=== PATIENT | male | born 1995 | race Caucasian/White ===

== ENCOUNTER 2019-03-30 09:49 | Inpatient (IN) | payer OTHER ==
--- NOTE | 2019-03-30 10:24 | BHS.RME ---
Substance Use & Tx History - Substance Use History Opiates (Heroin) Substance amount: 1-1.5 bundles Frequency of use: Daily Substance route: Inhalation (ex: sniffing or snorting) Date of Last Use: 03/30/19 Benzodiazepines Substance amount: Xanax 4 tabs of 2 mg each Frequency of use: Daily Date of Last Use: 03/29/19 Physical/Psych/Mental Status - Behavior Eye Contact: Normal - Cooperativeness Cooperativeness: Cooperative - Thinking Thought Processes: Tight - Physical Health Problems Is patient presently having any pain?: No Does patient presently have any injuries (include location): No Does patient currently have a fever: No COWS - Scale Resting Pulse: 0= [place] 80 or Below Sweatin= Beads of Sweat on Face Restless Observation: 3= Extraneous Movement Pupil Size: 2= Moderately Dilated Bone or Joint Aches: 2= Severe Diffuse Aches Runny Nose/ Eye Tearin= Runny Nose/Eyes GI Upset > 30mins: 2= Nausea/Diarrhea Tremor Observation: 2= Slight Tremor Visible Yawning Observation: 0= None Anxiety or Irritability: 2=Irritable/Anxious Goose Flesh Skin: 0=Smooth Skin COWS Score: 18
[2019-03-30 11:38] VITALS: BMI 23.6
--- NOTE | 2019-03-30 11:48 | HP ---
COWS - Scale Resting Pulse: 0= [place] 80 or Below Sweatin= Beads of Sweat on Face Restless Observation: 3= Extraneous Movement Pupil Size: 2= Moderately Dilated Bone or Joint Aches: 2= Severe Diffuse Aches Runny Nose/ Eye Tearin= Runny Nose/Eyes GI Upset > 30mins: 2= Nausea/Diarrhea Tremor Observation: 2= Slight Tremor Visible Yawning Observation: 0= None Anxiety or Irritability: 2=Irritable/Anxious Goose Flesh Skin: 0=Smooth Skin COWS Score: 18 CIWA Score - Admission Criteria OASAS Guidelines: Admission for Medically Managed Detox: Requires at least one of the followin. CIWA greater than 12 2. Seizures within the past 24 hours 3. Delirium tremens within the past 24 hours 4. Hallucinations within the past 24 hours 5. Acute intervention needed for co occurring medical disorder 6. Acute intervention needed for co occurring psychiatric disorder 7. Severe withdrawal that cannot be handled at a lower level of care (continued vomiting, continued diarrhea, abnormal vital signs) requiring intravenous medication and/or fluids 8. Admitting History and Physical - Admission Chief Complaint: Mr. Palm is a 23 yo gentleman who presents to [facility] requesting admission for opioid and benzo detox. History of Present Illness: Mr. Palm is a 23 yo gentleman who presents to [facility] requesting admission for opioid and benzo detox. [facility] detox last year, relapsed October 2018. PMH: none Psych: depression, anxiety, PTSD, no SI Surg: inguinal hernia at the age 4y Substance use hx Heroin: first use age 21y, last use yesterday, 1 bundle daily, sniff, no overdose, never on methadone Xanax: first use age 15y, last use yesterday, 8 mg total daily THC: first use age 12 y, last use few days ago, 1 blunt several days per week Nicotine: first use age 12 y, last use a couple of days ago, 5-6 cigs per use - Smoking History Smoking history: Current every day smoker Have you smoked in the past 12 months: Yes Aproximately how many cigarettes per day: 6 Admission ROS S - HPI Exam Limitations: No Limitations - Ebola screening Have you traveled outside of the country in the last 21 days: No Have you had contact with anyone from an Ebola affected area: No Have you been sick,other than usual withdrawal symptoms: No Do you have a fever: No - Review of Systems Constitutional: Other (fatigue, insomnia) EENT: reports: No Symptoms Reported Respiratory: reports: No Symptoms reported Cardiac: reports: No Symptoms Reported GI: reports: Nausea : reports: No Symptoms Reported Musculoskeletal: reports: Back Pain, Joint Pain Integumentary: reports: No Symptoms Reported Neuro: reports: No Symptoms reported Endocrine: reports: No Symptoms Reported Hematology: reports: No Symptoms Reported Psychiatric: reports: Agitated, Anxious Patient History - Patient Medical History Hx Asthma: No Hx Chronic Obstructive Pulmonary Disease (COPD): No Hx Cardiac Disorders: No Hx Hypertension: No Hx Seizures: No Hx Diabetes: No Hx Gastrointestinal Disorders: No Hx Genitourinary Disorders: No Hx Sexually Transmitted Disorders: No Hx Renal Disease (ESRD): No Hx Depression: Yes Hx Suicide Attempt: No Hx Schizophrenia: No - Patient Surgical History Past Surgical History: Yes Hx Abdominal Surgery: Yes (inguinal hernia repair at age 4 yrs.) - PPD History Previous Implant?: Yes Documented Results: Negative w/o proof Implanted On Prior R Admission?: No - Smoking Cessation Smoking history: Current every day smoker Have you smoked in the past 12 months: Yes Aproximately how many cigarettes per day: 6 Hx Chewing Tobacco Use: No Initiated information on smoking cessation: Yes 'Breaking Loose' booklet given: 03/30/19 - Substances abused Heroin Substance route: Smoking Frequency: Daily Amount used: 10 bags Age of first use: 21 Date of last use: 03/29/19 Alprazolam (Xanax) Substance route: Oral Frequency: Daily Amount used: 8mg Age of first use: 15 Date of last use: 03/29/19 Marijuana/Hashish Substance route: Smoking Frequency: Daily Amount used: 1 blunt Age of first use: 12 Date of last use: 03/28/19 Admission Physical Exam BHS - Vital Signs Vital Signs: Vital Signs - 24 hr 03/30/19 11:35 Temperature 99.5 F Pulse Rate 73 Respiratory 18 Rate Blood Pressure 122/67 - Physical General Appearance: Yes: Moderate Distress, Thin HEENTM: Yes: Hearing grossly Normal, Normocephalic Respiratory: Yes: Lungs Clear, Normal Breath Sounds Neck: Yes: Within Normal Limits Breast: Yes: Breast Exam Deferred Cardiology: Yes: S1, S2, Tachycardia Abdominal: Yes: Non Tender, Flat, Soft, Increased Bowel Sounds Genitourinary: Yes: Other (deferred) Back: Yes: Normal Inspection Musculoskeletal: Yes: Within Normal Limits Extremities: Yes: Within Normal Limits Neurological: Yes: Alert Integumentary: Yes: Within Normal Limits, Other (tattoos) - Diagnostic (1) Opioid dependence with withdrawal Current Visit: Yes Status: Acute (2) Sedative, hypnotic or anxiolytic dependence with withdrawal, uncomplicated Current Visit: Yes Status: Acute (3) Depression Current Visit: Yes Status: Acute Cleared for Admission [facility] - Detox or Rehab [facility] Level of Care: Medically Managed Detox Regimen/Protocol: Methadone/Valium Breathalyzer - Breathalyzer Breathalyzer: 0 Urine Drug Screen - Test Device Lot number: [id number] Expiration date: 01/07/21 - Control Is test valid?: Yes - Results Drug screen NEGATIVE: No Urine drug screen results: THC-Marijuana, FEN-Fentanyl, MOP-Opiates, BZO- Benzodiazepines, BUP-Suboxone Inpatient Rehab Admission - Rehab Decision to Admit Inpatient rehab admission?: No
[2019-03-30] MEDS ORDERED: ACETAMINOPHEN 325 MG TABLET (FP) PO PRN ×2 (11:53)
[2019-03-30] MEDS ORDERED: IBUPROFEN 400 MG TABLET (FP) PO PRN (11:53)
[2019-03-30] MEDS ORDERED: MAG HYDROX/AL HYDROX/SIMETH 30 ML UNIT-DOSE CUP PO PRN (11:53)
[2019-03-30] MEDS ORDERED: MENTHOL/PHENOL 1 EACH UD MM PRN (11:53)
[2019-03-30] MEDS ORDERED: cloNIDine HCL 0.1 MG TABLET PO PRN (11:53)
[2019-03-30] MEDS ORDERED: MAGNESIUM CITRATE 300 ML BOTTLE PO PRN (11:53)
[2019-03-30] MEDS ORDERED: BISMUTH SUBSALICYLATE 262 MG/15 ML BTL PO PRN (11:53)
[2019-03-30] MEDS ORDERED: MAGNESIUM HYDROX 2400MG/30ML ORAL SUSPENSION 30 ML CUP PO PRN (11:53)
[2019-03-30] MEDS ORDERED: METHADONE HCL 10 MG TABLET (FOR DETOX USE ONLY) PO ONE (12:20)
[2019-03-30] MEDS: diazePAM 5 MG TABLET PO SCH ×2 (13:01→22:29)
[2019-03-30] MEDS: NICOTINE 7 MG/24 HOURS TOPICAL PATCH TD SCH (13:04)
[2019-03-30 15:04] LABS: HEMATOCRIT 37.2 % (35.4-49); HEMOGLOBIN 13.1 GM/dL (11.7-16.9); MCHC 35.2 g/dl (32.0-35.9); MEAN CELL VOLUME 85.2 fl (80-96); MEAN PLT VOLUME 9.2 fl (7.5-11.1); PLATELET COUNT 239 K/MM3 (134-434); RBC 4.37 M/mm3 (4.00-5.60)
[2019-03-30 15:33] LABS: ALBUMIN 4.3 g/dl (3.4-5.0); BILIRUBIN,TOTAL 0.8 mg/dL (0.2-1); BLOOD UREA NITROGEN 16.3 mg/dL (7-18); CALCIUM 9.6 mg/dL (8.5-10.1); POTASSIUM 4.4 mmol/L (3.5-5.1); TOT PROT 7.2 g/dl (6.4-8.2)
[2019-03-30] MEDS: THIAMINE HCL 100 MG TABLET (FP) PO SCH (22:29)
[2019-03-31] MEDS: diazePAM 5 MG TABLET PO SCH ×3 (05:24→22:29)
--- NOTE | 2019-03-31 09:13 | PN ---
S CIWA - CIWA Score Nausea/Vomitin Muscle Tremors: 2 Anxiety: 2 Agitation: 2 Paroxysmal Sweats: No Perspiration Orientation: 0-Oriented Tacttile Disturbances: 1-Very Mild Itch/Numbness Auditory Disturbances: 0-None Visual Disturbances: 0-None Headache: 2-Mild CIWA-Ar Total Score: 11 BHS COWS - Scale Resting Pulse: 1= [place] 81-100 Sweatin= No chills or Flushing Restless Observation: 1= Difficult to Sit Still Pupil Size: 1= Pupils >than Normal Bone or Joint Aches: 1= Mild Discomfort Runny Nose/ Eye Tearin= Nasal Congestion GI Upset > 30mins: 2= Nausea/Diarrhea Tremor Observation of Outstretched Hands: 2= Slight Tremor Visible Yawning Observation: 1= 1-2x During Session Anxiety or Irritability: 2=Irritable/Anxious Goose Flesh Skin: 0=Smooth Skin COWS Score: 12 S Progress Note (SOAP) Subjective: alert,irritable,anxious,interrupted sleep,pain in the body and back Objective: 03/31/19 09:12 Vital Signs Temperature 97 F L 03/31/19 06:24 Pulse Rate 89 03/31/19 06:24 Respiratory Rate 16 03/31/19 06:24 Blood Pressure 101/78 03/31/19 06:24 O2 Sat by Pulse Oximetry (%) 03/31/19 09:12 Laboratory Last Values WBC 9.0 K/mm3 (4.0-10.0) 03/30/19 12:00 RBC 4.37 M/mm3 (4.00-5.60) 03/30/19 12:00 Hgb 13.1 GM/dL (11.7-16.9) 03/30/19 12:00 Hct 37.2 % (35.4-49) 03/30/19 12:00 MCV 85.2 fl (80-96) 03/30/19 12:00 MCH 30.0 pg (25.7-33.7) 03/30/19 12:00 MCHC 35.2 g/dl (32.0-35.9) 03/30/19 12:00 RDW 14.0 % (11.9-15.9) 03/30/19 12:00 Plt Count 239 K/MM3 (134-434) 03/30/19 12:00 MPV 9.2 fl (7.5-11.1) 03/30/19 12:00 Sodium 138 mmol/L (136-145) 03/30/19 12:00 Potassium 4.4 mmol/L (3.5-5.1) 03/30/19 12:00 Chloride 106 mmol/L (98-107) 03/30/19 12:00 Carbon Dioxide 28 mmol/L (21-32) 03/30/19 12:00 Anion Gap 4 MMOL/L (8-16) L 03/30/19 12:00 BUN 16.3 mg/dL (7-18) 03/30/19 12:00 Creatinine 1.0 mg/dL (0.55-1.3) 03/30/19 12:00 Est GFR (CKD-EPI)AfAm 121.55 03/30/19 12:00 Est GFR (CKD-EPI)NonAf 104.88 03/30/19 12:00 Random Glucose 96 mg/dL (74-106) 03/30/19 12:00 Calcium 9.6 mg/dL (8.5-10.1) 03/30/19 12:00 Total Bilirubin 0.8 mg/dL (0.2-1) 03/30/19 12:00 AST 121 U/L (15-37) H 03/30/19 12:00 ALT 320 U/L (13-61) H 03/30/19 12:00 Alkaline Phosphatase 69 U/L (45-117) 03/30/19 12:00 Total Protein 7.2 g/dl (6.4-8.2) 03/30/19 12:00 Albumin 4.3 g/dl (3.4-5.0) 03/30/19 12:00 Assessment: 03/31/19 09:12 withdrawal symptom Plan: continue detox methadone and valium regimen,d/c tylenol due to elevation of alt, ast,repeat cmp,inr in am
[2019-03-31] MEDS ORDERED: METHADONE HCL 10 MG TABLET (FOR DETOX USE ONLY) ONE (09:37)
[2019-03-31] MEDS ORDERED: METHADONE HCL 5 MG TABLET (FOR DETOX USE ONLY) ONE (09:37)
[2019-03-31] MEDS ORDERED: METHADONE (DETOX) 20 MG, METHADONE (DETOX) 5 MG PO ONE (10:00)
[2019-03-31] MEDS: PRENATAL VITAMINS W/ FOLIC ACID TABLET (FP) PO SCH (10:17)
[2019-03-31] MEDS: NICOTINE 7 MG/24 HOURS TOPICAL PATCH TD SCH (10:18)
--- NOTE | 2019-03-31 14:25 | CONSULT ---
[facility] Psychiatric Consult - Data Date of interview: 03/31/19 Psychiatric History: Patient was approached at bedside. Told card writer hand:"I have no need to see a psychiatrist"
[2019-03-31] MEDS: diazePAM 5 MG TABLET PO PRN (18:56)
[2019-03-31] MEDS: THIAMINE HCL 100 MG TABLET (FP) PO SCH (22:29)
[2019-04-01] MEDS: diazePAM 5 MG TABLET PO SCH ×2 (05:52→18:11)
[2019-04-01 09:49] LABS: INR 1.07 (0.83-1.09); PROTHROMBIN TIME (PATIENT) 12.6 SEC (9.7-13.0)
[2019-04-01] MEDS ORDERED: METHADONE HCL 10 MG TABLET (FOR DETOX USE ONLY) PO ONE (10:00)
[2019-04-01 10:01] LABS: ALBUMIN 4.4 g/dl (3.4-5.0); BILIRUBIN,TOTAL 0.7 mg/dL (0.2-1); BLOOD UREA NITROGEN 20.9 mg/dL (7-18); CALCIUM 9.5 mg/dL (8.5-10.1); CREATININE 1.3 mg/dL (0.55-1.3); POTASSIUM 3.8 mmol/L (3.5-5.1); TOT PROT 7.2 g/dl (6.4-8.2)
[2019-04-01] MEDS: PRENATAL VITAMINS W/ FOLIC ACID TABLET (FP) PO SCH (10:20)
[2019-04-01] MEDS: NICOTINE 7 MG/24 HOURS TOPICAL PATCH TD SCH (10:21)
[2019-04-01] MEDS: diazePAM 5 MG TABLET PO PRN ×2 (10:24→14:34)
[2019-04-01] MEDS: hydrOXYzine PAMOATE 25 MG CAPSULE (FP) PO PRN (11:41)
[2019-04-01] MEDS: METHOCARBAMOL 500 MG TABLET PO PRN ×2 (11:41→21:54)
--- NOTE | 2019-04-01 15:40 | PN ---
[facility] CIWA - CIWA Score Nausea/Vomitin-No Nausea/No Vomiting Muscle Tremors: None Anxiety: 4-Mod. Anxious/Guarded Agitation: 3 Paroxysmal Sweats: 3 Orientation: 0-Oriented Tacttile Disturbances: 0-None Auditory Disturbances: 0-None Visual Disturbances: 1-Very Mild Sensitivity Headache: 0-None Present CIWA-Ar Total Score: 11 S COWS - Scale Resting Pulse: 0= [place] 80 or Below Sweatin= Chills/Flushing Restless Observation: 1= Difficult to Sit Still Pupil Size: 0= Normal to Room Light Bone or Joint Aches: 1= Mild Discomfort Runny Nose/ Eye Tearin= None GI Upset > 30mins: 0= None Tremor Observation of Outstretched Hands: 0= None Yawning Observation: 1= 1-2x During Session Anxiety or Irritability: 2=Irritable/Anxious Goose Flesh Skin: 0=Smooth Skin COWS Score: 6 S Progress Note (SOAP) Subjective: Fatigue, Anxious, Sweating, Insomnia. Objective: PATIENT A & O X 3, OBSERVED AMBULATING ON DETOX UNIT UNASSISTED. IN NO ACUTE DISTRESS. 04/01/19 15:37 Vital Signs Temperature 98.2 F 04/01/19 12:46 Pulse Rate 52 L 04/01/19 12:46 Respiratory Rate 18 04/01/19 12:46 Blood Pressure 110/52 L 04/01/19 12:46 O2 Sat by Pulse Oximetry (%) Laboratory Tests 03/30/19 03/30/19 03/30/19 12:00 12:00 12:00 WBC 9.0 RBC 4.37 Hgb 13.1 Hct 37.2 MCV 85.2 MCH 30.0 MCHC 35.2 RDW 14.0 Plt Count 239 MPV 9.2 PT with INR INR Sodium 138 Potassium 4.4 Chloride 106 Carbon Dioxide 28 Anion Gap 4 L BUN 16.3 Creatinine 1.0 Est GFR (CKD-EPI)AfAm 121.55 Est GFR (CKD-EPI)NonAf 104.88 Random Glucose 96 Calcium 9.6 Total Bilirubin 0.8 AST 121 H ALT 320 H Alkaline Phosphatase 69 Total Protein 7.2 Albumin 4.3 RPR Titer Nonreactive 04/01/19 04/01/19 07:00 07:00 WBC RBC Hgb Hct MCV MCH MCHC RDW Plt Count MPV PT with INR 12.60 INR 1.07 Sodium 140 Potassium 3.8 Chloride 106 Carbon Dioxide 29 Anion Gap 5 L BUN 20.9 H Creatinine 1.3 Est GFR (CKD-EPI)AfAm 88.51 Est GFR (CKD-EPI)NonAf 76.37 Random Glucose 93 Calcium 9.5 Total Bilirubin 0.7 AST 44 H ALT 211 H Alkaline Phosphatase 67 Total Protein 7.2 Albumin 4.4 RPR Titer LABS NOTED. RESULTS OF REPEAT AST AND REPEAT ALT LEVELS NOTED. SIGNIFICANT REDUCTIONS NOTED ON BOTH VALUES IN COMPARISON TO DETOX ADMISSION VALUES. 04/01/19 15:38 Assessment: 04/01/19 15:38 WITHDRAWAL SYMPTOMS. ELEVATED AST LEVEL. ELEVATED ALT LEVEL. Plan: CONTINUE DETOX. INCREASE DAILY ORAL WATER INTAKE. PRN MELATONIN ORAL FOR INSOMNIA.
[2019-04-01] MEDS: MELATONIN 5 MG TABLETS PO PRN (21:51)
[2019-04-01] MEDS: THIAMINE HCL 100 MG TABLET (FP) PO SCH (21:51)
[2019-04-02] MEDS ORDERED: diazePAM 5 MG TABLET PO ONE (06:00)
[2019-04-02] MEDS ORDERED: METHADONE HCL 10 MG TABLET (FOR DETOX USE ONLY) ONE (09:52)
[2019-04-02] MEDS ORDERED: METHADONE HCL 5 MG TABLET (FOR DETOX USE ONLY) ONE (09:52)
[2019-04-02] MEDS ORDERED: METHADONE (DETOX) 10 MG, METHADONE (DETOX) 5 MG PO ONE (10:00)
[2019-04-02] MEDS: NICOTINE 7 MG/24 HOURS TOPICAL PATCH TD SCH (10:25)
[2019-04-02] MEDS: PRENATAL VITAMINS W/ FOLIC ACID TABLET (FP) PO SCH (10:25)
[2019-04-02] MEDS: METHOCARBAMOL 500 MG TABLET PO PRN (10:27)
[2019-04-02] MEDS: diazePAM 5 MG TABLET PO PRN (10:27)
--- NOTE | 2019-04-02 13:47 | PN ---
[facility] CIWA - CIWA Score Nausea/Vomitin-No Nausea/No Vomiting Muscle Tremors: 2 Anxiety: 2 Agitation: 2 Paroxysmal Sweats: 2 Orientation: 0-Oriented Tacttile Disturbances: 0-None Auditory Disturbances: 0-None Visual Disturbances: 0-None Headache: 0-None Present CIWA-Ar Total Score: 8 BHS COWS - Scale Resting Pulse: 0= [place] 80 or Below Sweatin= Chills/Flushing Restless Observation: 0= Sits Still Pupil Size: 0= Normal to Room Light Bone or Joint Aches: 1= Mild Discomfort Runny Nose/ Eye Tearin= Runny Nose/Eyes GI Upset > 30mins: 1= Stomach Cramp Tremor Observation of Outstretched Hands: 2= Slight Tremor Visible Yawning Observation: 0= None Anxiety or Irritability: 1=Feels Anxious/Irritable Goose Flesh Skin: 0=Smooth Skin COWS Score: 8 BHS Progress Note (SOAP) Subjective: Fatigue, anxious, restless, chills, sweating, tremor Objective: 04/02/19 13:41 Last Vital Signs Temp Pulse Resp BP Pulse Ox 97.9 F 63 18 123/64 04/02/19 12:43 04/02/19 12:43 04/02/19 12:43 04/02/19 12:43 Laboratory Tests 03/30/19 03/30/19 03/30/19 12:00 12:00 12:00 WBC 9.0 RBC 4.37 Hgb 13.1 Hct 37.2 MCV 85.2 MCH 30.0 MCHC 35.2 RDW 14.0 Plt Count 239 MPV 9.2 PT with INR INR Sodium 138 Potassium 4.4 Chloride 106 Carbon Dioxide 28 Anion Gap 4 L BUN 16.3 Creatinine 1.0 Est GFR (CKD-EPI)AfAm 121.55 Est GFR (CKD-EPI)NonAf 104.88 Random Glucose 96 Calcium 9.6 Total Bilirubin 0.8 AST 121 H ALT 320 H Alkaline Phosphatase 69 Total Protein 7.2 Albumin 4.3 RPR Titer Nonreactive 04/01/19 04/01/19 07:00 07:00 WBC RBC Hgb Hct MCV MCH MCHC RDW Plt Count MPV PT with INR 12.60 INR 1.07 Sodium 140 Potassium 3.8 Chloride 106 Carbon Dioxide 29 Anion Gap 5 L BUN 20.9 H Creatinine 1.3 Est GFR (CKD-EPI)AfAm 88.51 Est GFR (CKD-EPI)NonAf 76.37 Random Glucose 93 Calcium 9.5 Total Bilirubin 0.7 AST 44 H ALT 211 H Alkaline Phosphatase 67 Total Protein 7.2 Albumin 4.4 RPR Titer Labs reviewed: bun 20.9 (high), AST/ALT high (trending downward) Assessment: 04/02/19 13:47 Withdrawal sxs Noted with azotemia and transaminitis Plan: Continue detox Azotemia:encouraged PO water intake Transaminitis: most likely due to substance use, trending downward, encouraged abstinence, follow up with PCP for monitoring and further evaluation
[2019-04-02] MEDS: hydrOXYzine PAMOATE 25 MG CAPSULE (FP) PO PRN (22:23)
[2019-04-02] MEDS: MELATONIN 5 MG TABLETS PO PRN (22:24)
[2019-04-02] MEDS: THIAMINE HCL 100 MG TABLET (FP) PO SCH (23:11)
--- NOTE | 2019-04-03 09:38 | PN ---
[facility] CIWA - CIWA Score Nausea/Vomitin-Mild Nausea/No Vomiting Muscle Tremors: 1-None Visible, but [place] Anxiety: 2 Agitation: 2 Paroxysmal Sweats: No Perspiration Orientation: 0-Oriented Tacttile Disturbances: 1-Very Mild Itch/Numbness Auditory Disturbances: 0-None Visual Disturbances: 0-None Headache: 1-Very Mild CIWA-Ar Total Score: 8 BHS COWS - Scale Resting Pulse: 0= [place] 80 or Below Sweatin= No chills or Flushing Restless Observation: 1= Difficult to Sit Still Pupil Size: 0= Normal to Room Light Bone or Joint Aches: 1= Mild Discomfort Runny Nose/ Eye Tearin= Nasal Congestion GI Upset > 30mins: 1= Stomach Cramp Tremor Observation of Outstretched Hands: 1= Tremor [place], Not Seen Yawning Observation: 0= None Anxiety or Irritability: 2=Irritable/Anxious Goose Flesh Skin: 0=Smooth Skin COWS Score: 7 [facility] Progress Note (SOAP) Subjective: alert,irritable,anxious,interrupted sleep,pain in the body, Objective: 04/03/19 09:37 Vital Signs Temperature 97.5 F L 04/03/19 06:24 Pulse Rate 50 L 04/03/19 06:24 Respiratory Rate 16 04/03/19 06:24 Blood Pressure 100/55 L 04/03/19 06:24 O2 Sat by Pulse Oximetry (%) Assessment: 04/03/19 09:37 withdrawal symptom Plan: continue detox methadone and valum regimen,discharge in am
[2019-04-03] MEDS ORDERED: METHADONE HCL 10 MG TABLET (FOR DETOX USE ONLY) PO ONE (10:00)
[2019-04-03] MEDS: PRENATAL VITAMINS W/ FOLIC ACID TABLET (FP) PO SCH (10:23)
[2019-04-03] MEDS: NICOTINE 7 MG/24 HOURS TOPICAL PATCH TD SCH (10:23)
[2019-04-03] MEDS: METHOCARBAMOL 500 MG TABLET PO PRN (19:52)
[2019-04-03] MEDS: MELATONIN 5 MG TABLETS PO PRN (22:12)
[2019-04-03] MEDS: THIAMINE HCL 100 MG TABLET (FP) PO SCH (22:12)
[2019-04-03] MEDS: hydrOXYzine PAMOATE 25 MG CAPSULE (FP) PO PRN (22:13)
[2019-04-04] MEDS ORDERED: METHADONE HCL 5 MG TABLET (FOR DETOX USE ONLY) PO ONE (06:00)
--- NOTE | 2019-04-04 08:40 | PN ---
[facility] CIWA - CIWA Score Nausea/Vomitin-No Nausea/No Vomiting Muscle Tremors: None Anxiety: 1-Mildly Anxious Agitation: 0-Normal Activity Paroxysmal Sweats: No Perspiration Orientation: 0-Oriented Tacttile Disturbances: 0-None Auditory Disturbances: 0-None Visual Disturbances: 0-None Headache: 0-None Present CIWA-Ar Total Score: 1 [facility] COWS - Scale Resting Pulse: 0= [place] 80 or Below Sweatin= No chills or Flushing Restless Observation: 0= Sits Still Pupil Size: 0= Normal to Room Light Bone or Joint Aches: 0= None Runny Nose/ Eye Tearin= None GI Upset > 30mins: 0= None Tremor Observation of Outstretched Hands: 0= None Yawning Observation: 0= None Anxiety or Irritability: 1=Feels Anxious/Irritable Goose Flesh Skin: 0=Smooth Skin COWS Score: 1 [facility] Progress Note (SOAP) Subjective: alert,no complainit Objective: 04/04/19 08:39 Vital Signs Temperature 97.7 F 04/04/19 05:25 Pulse Rate 52 L 04/04/19 05:25 Respiratory Rate 18 04/04/19 05:25 Blood Pressure 104/43 L 04/04/19 05:25 O2 Sat by Pulse Oximetry (%) Assessment: 04/04/19 08:39 detox completed,no withdrawal symptom Plan: stable for discharge today,follow up with [facility]
--- NOTE | 2019-04-04 08:41 | DS ---
[facility] Detox Discharge Summary Admission Date: 03/30/19 Discharge Date: 04/04/19 - History Present History: Opioid Dependence, Sedative Dependence Additional Comments: alert,oriented x 3 heart normal heart sound,s1s2 lung clear ,no wheezing abdomen soft,no pain stable for [facility] - Physical Exam Results Vital Signs: Vital Signs Temperature 97.7 F 04/04/19 05:25 Pulse Rate 52 L 04/04/19 05:25 Respiratory Rate 18 04/04/19 05:25 Blood Pressure 104/43 L 04/04/19 05:25 O2 Sat by Pulse Oximetry (%) Pertinent Admission Physical Exam Findings: withdrawal signs and symptom Laboratory Last Values WBC 9.0 K/mm3 (4.0-10.0) 03/30/19 12:00 RBC 4.37 M/mm3 (4.00-5.60) 03/30/19 12:00 Hgb 13.1 GM/dL (11.7-16.9) 03/30/19 12:00 Hct 37.2 % (35.4-49) 03/30/19 12:00 MCV 85.2 fl (80-96) 03/30/19 12:00 MCH 30.0 pg (25.7-33.7) 03/30/19 12:00 MCHC 35.2 g/dl (32.0-35.9) 03/30/19 12:00 RDW 14.0 % (11.9-15.9) 03/30/19 12:00 Plt Count 239 K/MM3 (134-434) 03/30/19 12:00 MPV 9.2 fl (7.5-11.1) 03/30/19 12:00 PT with INR 12.60 SEC (9.7-13.0) 04/01/19 07:00 INR 1.07 (0.83-1.09) 04/01/19 07:00 Sodium 140 mmol/L (136-145) 04/01/19 07:00 Potassium 3.8 mmol/L (3.5-5.1) 04/01/19 07:00 Chloride 106 mmol/L (98-107) 04/01/19 07:00 Carbon Dioxide 29 mmol/L (21-32) 04/01/19 07:00 Anion Gap 5 MMOL/L (8-16) L 04/01/19 07:00 BUN 20.9 mg/dL (7-18) H 04/01/19 07:00 Creatinine 1.3 mg/dL (0.55-1.3) 04/01/19 07:00 Est GFR (CKD-EPI)AfAm 88.51 04/01/19 07:00 Est GFR (CKD-EPI)NonAf 76.37 04/01/19 07:00 Random Glucose 93 mg/dL (74-106) 04/01/19 07:00 Calcium 9.5 mg/dL (8.5-10.1) 04/01/19 07:00 Total Bilirubin 0.7 mg/dL (0.2-1) 04/01/19 07:00 AST 44 U/L (15-37) H 04/01/19 07:00 ALT 211 U/L (13-61) H 04/01/19 07:00 Alkaline Phosphatase 67 U/L (45-117) 04/01/19 07:00 Total Protein 7.2 g/dl (6.4-8.2) 04/01/19 07:00 Albumin 4.4 g/dl (3.4-5.0) 04/01/19 07:00 RPR Titer Nonreactive (NONREACTIVE) 03/30/19 12:00 Vital Signs Temperature 97.7 F 04/04/19 05:25 Pulse Rate 52 L 04/04/19 05:25 Respiratory Rate 18 04/04/19 05:25 Blood Pressure 104/43 L 04/04/19 05:25 O2 Sat by Pulse Oximetry (%) - Treatment Hospital Course: Detox Protocol Followed, Detoxed Safely, Responded well, Discharged Condition Good, Rehab Referral Accepted Patient has Accepted a Rehab Referral to: [facility] - Medication Discharge Medications: Ambulatory Orders NK [No Known Home Medication] 04/03/19 - Diagnosis (1) Opioid dependence with withdrawal Current Visit: Yes Status: Acute (2) Sedative, hypnotic or anxiolytic dependence with withdrawal, uncomplicated Current Visit: Yes Status: Acute - AMA Did Patient Leave Against Medical Advice: No
[2019-04-04 09:42] VITALS: BP 112/50; PULSE 59; TEMP 96.6
[2019-04-04] MEDS: NICOTINE 7 MG/24 HOURS TOPICAL PATCH TD SCH (10:25)
[2019-04-04] MEDS: PRENATAL VITAMINS W/ FOLIC ACID TABLET (FP) PO SCH (10:25)
== END 2019-04-04 11:28 | disposition home or self-care (01) | DRG 773 ==
LOC: YASAS 09:49 → Y6N 11:55
PROVIDERS: ADMIT Allergy & Immunology; ATTEND Allergy & Immunology
PROC: HZ2ZZZZ Detoxification Services for Substance Abuse Treatment (ICD-10-PCS; principal; 2019-03-30)
DX: F11.23 Opioid dependence with withdrawal (principal); F13.230 Sedative, hypnotic or anxiolytic dependence with withdrawal, uncomplicated; F12.10 Cannabis abuse, uncomplicated; F19.10 Other psychoactive substance abuse, uncomplicated; F17.210 Nicotine dependence, cigarettes, uncomplicated; F32.9 Major depressive disorder, single episode, unspecified; F41.8 Other specified anxiety disorders; G47.00 Insomnia, unspecified; R79.89 Other specified abnormal findings of blood chemistry; R74.0 Nonspecific elevation of levels of transaminase and lactic acid dehydrogenase [LDH]; R94.5 Abnormal results of liver function studies
CPT/HCPCS: 36415; 80053; 85027; 85610; 86593